=== PATIENT | female | born 1990 | race American Indian/Alaskan Native ===

== ENCOUNTER 2021-12-03 19:23 | Emergency (ER) | payer SELFPAY ==
[2021-12-03 19:49] VITALS: BP 141/86
[2021-12-03 20:47] LABS: Bacteria,Urine 2+ /HPF (Negative); Bilirubin,Urine NEG (Negative); Blood,Urine SM (Negative); Color,Urine Amber (Yellow); Urobilinogen,Urine < 2.0 mg/dL (<2.0)
[2021-12-03 21:06] LABS: WBC,Urine > 182.0 /HPF (0.0-6.0)
== END 2021-12-04 00:15 | disposition left against medical advice (07) ==
LOC: ED 19:23
DX: R42 Dizziness and giddiness (principal); Z53.21 Procedure and treatment not carried out due to patient leaving prior to being seen by health care provider
CPT/HCPCS: 81001